=== PATIENT | male | born 1970 | race Caucasian/White ===

== ENCOUNTER 2017-07-20 13:58 | Emergency (ER) | payer MEDICARE, MEDICAID ==
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
[2017-07-20 17:17] VITALS: BP 138/66
== END 2017-07-20 17:15 | disposition home or self-care (01) ==
LOC: ED 13:58
DX: R20.8 Other disturbances of skin sensation (principal); F17.200 Nicotine dependence, unspecified, uncomplicated; Z87.820 Personal history of traumatic brain injury
CPT/HCPCS: 99283

== ENCOUNTER 2018-04-10 19:22 | Outpatient (CLI) | payer MEDICARE, MEDICAID ==
--- NOTE | 2018-04-11 09:24 | Ultrasound Report ---
Reason: EPIGASTRIC Procedure Date: 04/10/2018 Accession Number: [id number] / [id number] Procedure: US - Abdomen Limited CPT Code: FULL RESULT: EXAM: ABDOMEN ULTRASOUND LIMITED, RUQ EXAM DATE: 04/10/2018 08:13 PM. CLINICAL HISTORY: Epigastric. COMPARISON: None. TECHNIQUE: Real-time scanning was performed with static images obtained. FINDINGS: Liver: Normal in size and echotexture. Right lobe of liver measures at least 14.9 cm. Main portal vein flow: Hepatopetal. Gallbladder: Normal. No stones, wall thickening, or sonographic Powell's sign. Biliary System: CBD measures 4 mm. No intrahepatic or extrahepatic ductal dilatation. Other: None. IMPRESSION: Normal. No cholelithiasis or cholecystitis. RADIA
== END 2018-04-10 19:23 | disposition home or self-care (01) ==
LOC: DI 19:22
PROVIDERS: ATTEND Surgery
DX: R10.13 Epigastric pain (principal)
CPT/HCPCS: 76705

== ENCOUNTER 2018-05-24 10:58 | Outpatient (CLI) | payer MEDICARE, MEDICAID ==
[2018-05-24] MEDS ORDERED: IOVERSOL 320 100 ML VIAL IVP ONE ×2 (11:05→13:50)
--- NOTE | 2018-05-24 13:00 | CT Report ---
Reason: R FLANK PAIN Procedure Date: 05/24/2018 Accession Number: [id number] / [id number] Procedure: CT - Abdomen/Pelvis W/ CPT Code: FULL RESULT: EXAM: CT ABDOMEN AND PELVIS EXAM DATE: 05/24/2018 11:28 AM. CLINICAL HISTORY: R FLANK PAIN. COMPARISONS: Limited abdomen ultrasound 04/10/2018. TECHNIQUE: Routine helical CT imaging was performed through the abdomen and pelvis. IV contrast: OPTI 320 100mL. Enteric contrast: No. Reconstructions: Coronal and sagittal. In accordance with CT protocol optimization, one or more of the following dose reduction techniques were utilized for this exam: automated exposure control, adjustment of mA and/or KV based on patient size, or use of iterative reconstructive technique. FINDINGS: Lung Bases: No pleural fluid. Small hiatal hernia. Liver: 2.2 cm cyst 08/31. No masses. Gallbladder/Bile Ducts: Unremarkable. Spleen: Normal. Pancreas: Normal. Adrenal Glands: Normal. Kidneys: Normal. No masses or hydronephrosis. Peritoneal Cavity/Bowel: Normal. No free fluid, free air or adenopathy. No masses or acute inflammatory process. The appendix is well seen and normal. Pelvic Organs: Normal. The bladder and visualized pelvic organs are within normal limits. Vasculature: No aneurysms or other significant abnormality. Bones: Mild degenerative change in the spine. Other: None. IMPRESSION: No significant abnormality abdomen and pelvis CT. A source for pain is not identified. RADIA
== END 2018-05-24 10:59 | disposition home or self-care (01) ==
LOC: DI 10:58
PROVIDERS: ATTEND Surgery
DX: R10.9 Unspecified abdominal pain (principal)
CPT/HCPCS: 74177; Q9967

== ENCOUNTER 2019-06-06 11:25 | Outpatient (CLI) | payer MEDICARE, MEDICAID ==
--- NOTE | 2019-06-06 14:28 | XRAY Report ---
Reason: RT HAND PAIN Procedure Date: 06/06/2019 Accession Number: [id number] / [id number] Procedure: XR - Hand 3 View RT CPT Code: Final Report FULL RESULT: EXAM: RIGHT HAND RADIOGRAPHY EXAM DATE: 06/06/2019 11:57 AM. CLINICAL HISTORY: Right hand pain. COMPARISON: None. TECHNIQUE: 3 views. FINDINGS: Bones: Normal. No fractures or bone lesions. Joints: Mild degenerative changes at the first carpometacarpal articulation. Apparent degenerative changes are also seen in the triscaphe region. Soft Tissues: No soft tissue gas or radiopaque foreign body. IMPRESSION: No acute traumatic injury. Mild degenerative changes as described. RADIA
== END 2019-06-06 11:26 | disposition home or self-care (01) ==
LOC: DI 11:25
PROVIDERS: ATTEND Internal Medicine
DX: M19.041 Primary osteoarthritis, right hand (principal)